=== PATIENT | male | born 1970 | race Caucasian/White ===

== ENCOUNTER → 2019-08-30 | Outpatient (CLI) | payer BC ==
--- NOTE | 2019-08-30 18:45 | P.STRESS ---
- Stress Test Note Stress Test Results/Findings: Exam Performed: stress test Exam Date: 08/30/19 Reason for Exam: DYSPNEA Height: 6 ft Weight: 108.862 kg Protocol: JIMENA Stage: 3 Duration of Exercise: 8:00 Resting Heart Rate: 70 Resting Blood Pressure: 124/84 Maximum Achieved Heart Rate: 158 Maximum Achieved Blood Pressure: 169/77 85% PMHR: 146 100% PMHR: 172 METS: 9.7 Technologist Comment: Stress Test Results/Findings: This is a 48-year-old gentleman with history of hypertension being evaluated for symptoms of chest pain and shortness of breath. Stress data: Baseline EKG showed sinus rhythm with normal HI interval, QRS duration. Blood pressure at rest is 124/84 with pulse rate of 70. Patient walked on the Jimena protocol for 8 minutes achieving a maximum rate of 158 with a blood pressure 169/77. EKGs taken during and after the exercise showed some J-point depression with upsloping ST segments which are not diagnostic for ischemia. Patient did not experience any chest pain. Final impression: #1. Failed excise tolerance #2. Nonspecific ST-T changes during exercise with about [address] depression with upsloping ST segments which are not diagnostic for ischemia #3. Patient did not experience any chest pain. #4. No arrhythmias are noted
--- NOTE | 2019-08-31 12:45 | EST ---
Stress Test Results/Findings: Exam Performed: stress test Exam Date: 08/30/19 Reason for Exam: DYSPNEA Height: 6 ft Weight: 108.862 kg Protocol: JIMENA Stage: 3 Duration of Exercise: 8:00 Resting Heart Rate: 70 Resting Blood Pressure: 124/84 Maximum Achieved Heart Rate: 158 Maximum Achieved Blood Pressure: 169/77 85% PMHR: 146 100% PMHR: 172 METS: 9.7 Technologist Comment: Stress Test Results/Findings: This is a 48-year-old gentleman with history of hypertension being evaluated for symptoms of chest pain and shortness of breath. Stress data: Baseline EKG showed sinus rhythm with normal [place] interval, QRS duration. Blood pressure at rest is 124/84 with pulse rate of 70. Patient walked on the Jimena protocol for 8 minutes achieving a maximum rate of 158 with a blood pressure 169/77. EKGs taken during and after the exercise showed some J-point depression with upsloping ST segments which are not diagnostic for ischemia. Patient did not experience any chest pain. Final impression: #1. Fair excise tolerance #2. Nonspecific ST-T changes during exercise with about [address] depression with upsloping ST segments which are not diagnostic for ischemia #3. Patient did not experience any chest pain. #4. No arrhythmias are noted MTDD
--- NOTE | 2019-09-07 08:39 | ECHOF ---
Referral Reason:R06.00 Dyspnea; R07.9 Chest pain MEASUREMENTS -------- HEIGHT: 182.9 cm WEIGHT: 108.9 kg BP: RVIDd: 3.9 cm (< 3.3) IVSd: 1.3 cm (0.6 - 1.1) LVIDd: 4.3 cm (3.9 - 5.3) LVPWd: 1.1 cm (0.6 - 1.1) IVSs: 1.4 cm LVIDs: 3.2 cm LVPWs: 1.5 cm LA Diam: 4.0 cm (2.7 - 3.8) LAESV Index (A-L): 33.30 ml/m Ao Diam: 3.0 cm (2.0 - 3.7) AV Cusp: 2.2 cm (1.5 - 2.6) LA Diam: 4.2 cm (2.7 - 3.8) MV EXCURSION: 24.642 mm (> 18.000) MV EF SLOPE: 115 mm/s (70 - 150) EPSS: 0.3 cm MV E Jeremi: 0.45 m/s MV DecT: 179 ms MV A Jeremi: 0.52 m/s MV E/A Ratio: 0.86 RAP: 5.00 mmHg RVSP: 11.16 mmHg TAPSE: 19.91 mm FINDINGS -------- Sinus rhythm. This was a technically good study. LV size, wall thickness and systolic function are normal, with an EF greater than 55%. The left danielle tricular size is normal. The right ventricle is mild to moderately enlarged. The left atrial size is normal. Normal LA size by volume 22+/-6 ml/m2. The right atrial size is normal. The aortic valve is trileaflet, and appears structurally normal. No aortic stenosis or regurgitation. Mild mitral regurgitation is present. Mild tricuspid regurgitation present. Right ventricular systolic pressure is normal at < 35 mmHg. There is no evidence of pulmonary hypertension. There is no pulmonic regurgitation present. The aortic root size is normal. There is no pericardial effusion. CONCLUSIONS -------- 1. Sinus rhythm. 2. This was a technically good study. 3. LV size, wall thickness and systolic function are normal, with an EF greater than 55%. 4. The left ventricular size is normal. 5. The right ventricle is mild to moderately enlarged. 6. The left atrial size is normal. 7. Normal LA size by volume 22+/-6 ml/m2. 8. The right atrial size is normal. 9. The aortic valve is trileaflet, and appears structurally normal. No aortic stenosis or regurgitati on. 10. Mild mitral regurgitation is present. 11. Mild tricuspid regurgitation present. 12. Right ventricular systolic pressure is normal at < 35 mmHg. 13. There is no evidence of pulmonary hypertension. 14. There is no pulmonic regurgitation present. 15. The aortic root size is normal. 16. There is no pericardial effusion. MOBILE PRODUCT MANAGER: Myrna Amaya RDCS
== END | disposition home or self-care (01) ==
LOC: RADNMMAIN 10:27
PROVIDERS: ATTEND Family Medicine
DX: R07.9 Chest pain, unspecified (principal); I08.1 Rheumatic disorders of both mitral and tricuspid valves
CPT/HCPCS: 93017; 93306

== ENCOUNTER → 2020-08-13 | Outpatient (CLI) | payer BC | END | disposition home or self-care (01) | LOC: LABWHC1 14:30 | PROVIDERS: ATTEND Emergency Medicine | DX: Z20.828 Contact with and (suspected) exposure to other viral communicable diseases (principal) | CPT/HCPCS: U0003; C9803 ==

== ENCOUNTER → 2021-01-16 | Outpatient (CLI) | payer BC | END | disposition home or self-care (01) | LOC: LABPAT 15:26 | PROVIDERS: ATTEND Surgery | DX: Z20.822 Contact with and (suspected) exposure to COVID-19 (principal) | CPT/HCPCS: U0003; U0005 ==

== ENCOUNTER 2021-01-23 07:05 | Day surgery (SDC) | payer BC ==
[2021-01-21 18:41] VITALS: BMI 35.2
[~2021-01-23 07:05] MED LIST: LACTATED RINGERS 1,000 ML IV SCH; LIDOCAINE 1% (10MG/ML) FOR IV START INTRADERMA PRN
[2021-01-23 07:26] VITALS: RESP 16; TEMP 97.6
[2021-01-23] MEDS ORDERED: PROPOFOL 10 MG/ML 20 ML VIAL IV ONE (08:05)
--- NOTE | 2021-01-23 08:07 | P.GSHP ---
History of Present Illness H&P Date: 01/23/21 50-year-old male presents for screening colonoscopy. He has never had a colonoscopy previously. He denies any blood in his stool. Denies any family history of colon cancer. Denies any recent changes in bowel function. - Review of Systems All systems: negative Past Medical History Past Medical History: Asthma, Hypertension History of Any Multi-Drug Resistant Organisms: None Reported Past Surgical History: Orthopedic Surgery Additional Past Surgical History / Comment(s): LEFT LEG SURGERY, Past Anesthesia/Blood Transfusion Reactions: No Reported Reaction Smoking Status: Never smoker - Past Family History Mother Family Medical History: No Reported History Father Family Medical History: Cancer Additional Family Medical History / Comment(s): THROAT CANCER Medications and Allergies Home Medications Medication Instructions Recorded Confirmed Type Montelukast [Singulair] 10 mg PO DAILY 01/21/21 01/23/21 History Multivitamins, Thera [Multivitamin 1 tab PO DAILY 01/21/21 01/23/21 History (formulary)] Valsartan [Diovan] 80 mg PO DAILY 01/21/21 01/23/21 History Allergies Allergy/AdvReac Type Severity Reaction Status Date / Time No Known Allergies Allergy Verified 01/21/21 18:18 Surgical - Exam Osteopathic Statement: *. No significant issues noted on an osteopathic structural exam other than those noted in the History and Physical/Consult. Vital Signs Temp Pulse Resp BP Pulse Ox 97.6 F 89 16 126/70 95 01/23/21 07:19 01/23/21 07:19 01/23/21 07:19 01/23/21 07:19 01/23/21 07:19 - General well developed, well nourished - Neck trachea midline - Respiratory normal respiratory effort - Abdomen Abdomen: soft, non tender - Psychiatric oriented to time, oriented to person, oriented to place Assessment and Plan Plan: 50-year-old male presents for screening colonoscopy. Plan is for colonoscopy. Risks, benefits and alternatives were provided to the patient. He did provide consent prior to attending the endoscopy suite.
--- NOTE | 2021-01-23 08:21 | P.PCN ---
Date of Procedure: 01/23/21 Preoperative Diagnosis: Screening for colon cancer Postoperative Diagnosis: Diverticulosis, mild Procedure(s) Performed: Colonoscopy Anesthesia: MAC Surgeon: Chely Lizarraga Pathology: none sent Condition: stable Disposition: same day Indications for Procedure: 50-year-old male presents for a screening colonoscopy. Denies any blood in his stool. Denies any family history of colon cancer. Risks, benefits and alternatives were provided to the patient. He did provide consent prior to attending the endoscopy suite. Operative Findings: Diverticulosis Description of Procedure: The patient was brought into the endoscopy suite. He was then placed in left lateral decubitus position and adequate sedation was achieved using conscious sedation. A digital rectal exam was performed and mild internal hemorrhoids were palpated. An endoscope was then placed in the rectum and advanced to the cecum as identified by landmarks including the appendiceal orifice and the ileocecal valve. The prep was good. The colonoscope was then slowly withdrawn, examining for any mucosal abnormalities. The cecum, ascending, transverse, descending and sigmoid colon were visualized adequately. There were no large neoplastic lesions throughout the colon. There were no obvious polyps noted throughout the colon. Mild amount of diverticulosis is noted in the sigmoid colon. Retroflexion was performed in the rectum and internal hemorrhoids were visible. Excess air was removed, the colonoscope withdrawn and the procedure terminated. The patient was then transferred to the recovery unit in stable condition. Repeat colonoscopy should be performed in 7 years.
[2021-01-23 08:34] VITALS: BP 106/67; PULSE 76
== END 2021-01-23 08:56 | disposition home or self-care (01) ==
LOC: ORWHC2ENDO 07:05
PROVIDERS: ATTEND Surgery
DX: Z12.11 Encounter for screening for malignant neoplasm of colon (principal); K57.30 Diverticulosis of large intestine without perforation or abscess without bleeding; K64.8 Other hemorrhoids; J45.909 Unspecified asthma, uncomplicated; I10 Essential (primary) hypertension; Z98.890 Other specified postprocedural states; Z79.899 Other long term (current) drug therapy; Z80.8 Family history of malignant neoplasm of other organs or systems
CPT/HCPCS: J2704; G0121

== ENCOUNTER → 2021-03-10 | Outpatient (CLI) | payer BC | END | disposition home or self-care (01) | LOC: LABWHC1 15:35 | PROVIDERS: ATTEND Emergency Medicine | DX: Z20.822 Contact with and (suspected) exposure to COVID-19 (principal) | CPT/HCPCS: U0003; C9803; U0005 ==

== ENCOUNTER → 2023-02-08 | Outpatient (CLI) | payer BC ==
--- NOTE | 2023-02-09 08:03 | XR ---
EXAMINATION TYPE: XR chest 2V DATE OF EXAM: 02/08/2023 COMPARISON: NONE TECHNIQUE: PA and lateral views submitted. HISTORY: Cough FINDINGS: The lungs are clear and there is no pneumothorax, pleural effusion, or focal pneumonia. Heart size normal and no overt failure. Osseous structures intact. Partial eventration right hemidiaphragm. IMPRESSION: 1. No acute process. If symptoms persist consider CT scan
== END | disposition home or self-care (01) ==
LOC: RADXRMAIN 17:25
PROVIDERS: ATTEND Family Medicine
DX: R05.9 Cough, unspecified (principal)
CPT/HCPCS: 71046

== ENCOUNTER 2024-09-28 09:31 | Day surgery (SDC) | payer BC ==
[2024-09-28 10:02] VITALS: TEMP 97.6
[2024-09-28] MEDS: IV FLUID CONTINUATION 1,000 ML IV ONE (10:05)
[2024-09-28] MEDS: LACTATED RINGERS 1,000 ML IV SCH (10:05)
[2024-09-28] MEDS: NA PHOS,M-B/NA PHOS,DI-BA 133 ML ENEMA RECTAL STA (10:08)
[2024-09-28] MEDS ORDERED: PROPOFOL 10 MG/ML 20 ML VIAL IV ONE (10:47)
[2024-09-28] MEDS ORDERED: LIDOCAINE 1% INJ 10MG/ML (20 ML MDV) ONE (10:47)
--- NOTE | 2024-09-28 11:01 | P.PCN ---
Date of Procedure: 09/28/24 Procedure(s) Performed: BRIEF HISTORY: Patient is a 53-year-old pleasant white male scheduled for an elective colonoscopy as a part of screening for colon cancer. PROCEDURE PERFORMED: Colonoscopy. PREOPERATIVE DIAGNOSIS: Screening for colon cancer. IV sedation per Anesthesia. PROCEDURE: After informed consent was obtained, the patient, was brought into the endoscopy unit. IV sedation was administered by Anesthesia under continuous monitoring. Digital rectal examination was normal. Initially the Olympus CF-160 flexible video colonoscope was then inserted in the rectum, gradually advanced into the cecum without any difficulty. Careful examination was performed as the scope was gradually being withdrawn. Ileocecal valve and the appendiceal orifice were visualized and appeared normal. Prep was excellent. Mucosa of the cecum, ascending colon, transverse colon, descending colon, sigmoid colon, and rectum appeared normal. Scattered sigmoid diverticulosis. Retroflexion was performed in the rectum and no lesions were seen. The patient tolerated the procedure well. IMPRESSION: Normal-appearing colon from rectum to cecum with no evidence of colorectal neoplasia. Sigmoid diverticulosis. RECOMMENDATIONS: Findings of this examination were discussed with the patient as well as his family. He was advised to have repeat screening colonoscopy in 10 years.
[2024-09-28 12:00] VITALS: PULSE 64
[2024-09-28 12:02] VITALS: BP 123/83; RESP 18
== END 2024-09-28 12:09 | disposition home or self-care (01) ==
LOC: ORWHC2ENDO 09:31
PROVIDERS: ATTEND Internal Medicine Gastroenterology
DX: Z12.11 Encounter for screening for malignant neoplasm of colon (principal); K57.30 Diverticulosis of large intestine without perforation or abscess without bleeding; I10 Essential (primary) hypertension; J45.909 Unspecified asthma, uncomplicated; Z79.899 Other long term (current) drug therapy; Z98.890 Other specified postprocedural states
CPT/HCPCS: 45378; J2003; J2704

== ENCOUNTER → 2025-03-13 | Outpatient (CLI) | payer BC ==
--- NOTE | 2025-03-15 11:28 | MR ---
EXAMINATION TYPE: MR lumbar spine wo con DATE OF EXAM: 03/13/2025 8:07 PM COMPARISON: 01/15/2025. CLINICAL INDICATION: Male, 54 years old with history of M54.50, M47.816, Low back pain x3-4 months TECHNIQUE: Multi planar, multi sequence imaging was performed utilizing: T1-weighted, T2-weighted, a nd turbo inversion recovery imaging of the lumbar spine. IV Contrast: mL (None, if empty) FINDINGS: Alignment: The lumbar vertebral bodies have preserved heights and alignment. Cord: The conus medullaris and the distal spinal cord appear unremarkable with regards to their signa l intensity and morphology. Bones/Discs: High T1 high T2 signal probable vertebral body hemangioma versus focal fat in L4 vertebr al body. Bilateral pars and articularis defects at L5. Mild reactive edema within the pedicle on the Minimal degeneration changes throughout the spine with osteophyte formation and facet joint arthropat hy. Intervertebral disc signal is maintained. No abnormal inversion recovery signal to suggest bony e fran. T12-L1: No evidence of significant spinal canal stenosis or neural foraminal stenosis. L1-L2: No evidence of significant spinal canal stenosis or neural foraminal stenosis. L2-L3: No evidence of significant spinal canal stenosis or neural foraminal stenosis. L3-L4: No evidence of significant spinal canal stenosis or neural foraminal stenosis. L4-L5: No evidence of significant spinal canal stenosis or neural foraminal stenosis. L5-S1: The disc has a rounded posterior morphology without significant spinal canal stenosis. Facet j oint arthropathy with mild bilateral neural foraminal stenosis. No significant spinal canal or neural foraminal stenosis in the remainder of the visualized levels. Other findings: None. IMPRESSION: 1. No definitive evidence of disc herniation or significant spinal canal stenosis. 2. Bilateral L5 pars interarticularis defects. No bony edema to suggest acute defects. 3. Minimal disc degeneration with associated osteoarthritic changes. [facility], , 03/15/2025 11:26 AM
== END | disposition home or self-care (01) ==
LOC: RADMRIMAIN 18:54
PROVIDERS: ATTEND Orthopaedic Surgery
DX: M47.816 Spondylosis without myelopathy or radiculopathy, lumbar region (principal); M51.360 Other intervertebral disc degeneration, lumbar region with discogenic back pain only
CPT/HCPCS: 72148